=== PATIENT | male | born 1970 ===

== ENCOUNTER 2022-07-29 21:18 | Emergency (ER) | payer MEDICAID ==
[~2022-07-29] VITALS: Ht 149.9 cm; Wt 65.0 kg
[2022-07-29 23:39] VITALS: BP 133/93
== END 2022-07-29 23:40 | disposition home or self-care (01) ==
LOC: EDBD 21:21 → EMS 21:21
DX: T18.9XXA Foreign body of alimentary tract, part unspecified, initial encounter (principal); Z85.9 Personal history of malignant neoplasm, unspecified; X58.XXXA Exposure to other specified factors, initial encounter; Y93.89 Activity, other specified; Y92.89 Other specified places as the place of occurrence of the external cause; Y99.8 Other external cause status
CPT/HCPCS: 70360; 99283